=== PATIENT | female | born 1965 | race Caucasian/White ===

== ENCOUNTER → 2016-08-27 | Outpatient (REF) | payer MEDICARE | LOC: M LAB REF 09:00 | PROVIDERS: ATTEND Ophthalmology | DX: D23.12 Other benign neoplasm of skin of left eyelid, including canthus (principal); D23.11 Other benign neoplasm of skin of right eyelid, including canthus; L82.1 Other seborrheic keratosis; L91.8 Other hypertrophic disorders of the skin ==